=== PATIENT | female | born 1955 | race Caucasian/White ===

== ENCOUNTER 2019-07-22 15:48 | Observation (INO) | payer OTHER, SELFPAY ==
[2019-06-24 14:35] VITALS: BP 142/76; PULSE 77; RESP 18; TEMP 36.8; O2SAT 97; BMI 28.1
--- NOTE | 2019-06-25 13:20 | PC.NURSE ---
OR CONSENT TO BE SIGNED DAY OF SURGERY. PATIENT SMELLED OF ALCOHOL. GOVIND FROM DR CARDOZA'S OFFICE MADE AWARE.
[2019-07-20] VITALS (14 sets, daily range): BP systolic 125–157; BP diastolic 60–95; PULSE 60–84; RESP 10–20; TEMP 36.2–37.2; O2SAT 92–100; BMI 29.5
[2019-07-20] MEDS: LACTATED RINGERS 1,000 ML 30 ML IV CONT ×2 (11:25→16:31)
--- NOTE | 2019-07-20 12:45 | WPDANESEPPF ---
Anes - Initial Pre Proc Eval Procedure: Operation Date: 07/20/19 13:00 Proposed Procedures p Right Patellofemoral Arthroplasty With Polyethylene Liner Exchange - Joel Womack MD s Removal Hardware Right Distal Femoral Plate And Screws - Joel Womack MD Date/Time: 07/20/19 12:45 Surgeon: Joel Womack MD Pre Op Diagnosis: OA Right Knee/ Painful Hardware Patient Data Age: 64 Gender: F Height: 5 ft 7 in Weight: 81.1 kg Last Vital Signs Temp 36.2 C L 07/20/19 11:08 Pulse 60 07/20/19 11:08 Resp 20 07/20/19 11:08 BP 144/72 H 07/20/19 11:08 Pulse Ox 100 07/20/19 11:08 Allergies Allergy/AdvReac Type Severity Reaction Status Date / Time No Known Allergies Allergy Unknown Unverified 07/20/19 11:13 Home Medications Medication Instructions Recorded Confirmed Type atenolol 50 mg PO DAILY 06/24/19 07/20/19 History escitalopram oxalate [Lexapro] 10 mg PO DAILY 06/24/19 07/20/19 History folic acid 1 mg PO DAILY 06/24/19 07/20/19 History gabapentin 900 mg PO TID 06/24/19 07/20/19 History loperamide [Imodium A-D] 2 mg PO Q4H PRN 06/24/19 06/24/19 History methotrexate 20 mg WEEKLY 06/24/19 06/24/19 History prednisolone acetate 1 drp OPHTHALMIC (EYE) Q12H 06/24/19 06/24/19 History turmeric 400 mg PO DAILY 06/24/19 06/24/19 History aspirin 81 mg tablet,delayed 81 mg PO DAILY 07/15/19 07/20/19 History release cholecalciferol (vitamin D3) 50 50 mcg PO DAILY 07/15/19 07/20/19 History mcg (2,000 unit) capsule conjugated estrogens 0.9 mg tablet 0.9 mg PO DAILY 07/15/19 07/20/19 History ferrous sulfate 325 mg (65 mg 325 mg PO DAILY 07/15/19 07/20/19 History iron) tablet lamotrigine 100 mg tablet 100 mg PO DAILY 07/15/19 History thiamine HCl (vitamin B1) 100 mg 100 mg PO DAILY 07/15/19 History tablet Patient hx anesthesia problems: none Family hx anesthesia problems: none PMFSH Past Medical History Medical History Anxiety Depression Fatigue Hypertension IBS (irritable bowel syndrome) Painful orthopaedic hardware Rheumatoid arthritis Surgical History Surgical History History of back surgery (~2008) History of repair of right rotator cuff (~04/01/17) Status post total knee replacement, right (~2012) Family History Family History Mother Hypertension Family history of Parkinson's disease Other Family history of gout Social History Social History Smoking status: Never smoker Smoking end date: 06/23/81 Alcohol intake: never Anes - Eval Final PreProcedure Day of Procedure 07/20/19 12:45 Patient weight: overweight Heart: regular rate and rhythm Lungs: clear to auscultation Airway: Mallampati scale class II Neurological: alert and oriented Last oral intake: >/= 8 hours ASA classification: III Emergent: no Anesthetic plan: proceed Anesthesia type and monitoring: general LMA and standard monitoring Informed Consent: The patient's anesthetic plan and its attendant risks and benefits were discussed with the patient/family/POA. Questions were solicited and answers provided to the satisfaction of the patient/family/POA.
--- NOTE | 2019-07-20 13:09 | WPDHPUPDATE1 ---
History and Physical Update Update Date/Time: 07/20/19 13:09 History and Physical has been reviewed, including an updated exam of the patient. There are NO changes in the patient's condition. Risks, benefits, and alternatives have been discussed and questions answered. Patient agrees to proceed with procedure.
[2019-07-20] MEDS: ceFAZolin 2 GM/D5W 50 ML 2 GM/50 ML BAG IVPB (13:20)
[2019-07-20] MEDS: ceFAZolin SODIUM 1 GM VIAL IV PUSH (15:22)
--- NOTE | 2019-07-20 16:25 | P.OP_ITS ---
Procedure Note - Detailed Date of procedure: 07/21/19 Pre-op diagnosis: OA Right Knee/ Painful Hardware 1. Patellar arthritis, s/p total knee arthroplasty. 2. Retained orthopedic hardware ,s/p Distal femur fracture ORIF. Post-op diagnosis: same Procedure performed: 1. Revision knee arthroplasty with patellar resurfacing and tibia polyethylene exchange. 2. Hardware remove of 8 deep screws. Description of procedure: Patellar resufacing. Poly exchange from 13 mm to 16mm thickness. Several titanium locking screws were cold welded to the plate, and not removable. It was elected to leave the plate in situ. Implants: [employer] size 16mm CS polyethylene insert, 35mm asymmetric all polyethylene patellar component. Anesthesia: GETA and regional (subsartorial nerve block) Surgeon: Joel Womack MD Drains: No Complications: None Findings: OPERATIVE DETAILS: The patient was given a nerve block preoperatively, and then brought to the operating room. A general anesthetic was administered. The leg was prepped and draped in the usual sterile fashion. The limb was elevated and the tourniquet inflated to 300 mmHg. A longitudinal incision was created along the medial border of the patella and patellar tendon, and a minimally invasive optimized mid-vastus approach to the knee was performed. A moderate medial release was taken. The patella was measured. Patellar resection was carried out with the oscillating saw. At this point, attention was turned to the lateral side plate. A stab incision was created at the distal plate. Two of the screws were removed. They were found to be quite tight and cold-welded. The 3rd screw head was stripped in the process of removal. It was felt that it may have been slightly stripped initially. It was required to increase incision to remove further screws. A percutaneous incision was created for the more proximal screws. One of the shaft screws was cold- welded, such that the screwdriver head broke inside the screw head. This point it was determined that the plate was not going to be removable. Further attempts would require cutting the plate with the high-speed bur. Since the plate was only mildly symptomatic it was left in situ at this point. Attention was turned back to the patella. The lug holes were drilled. The knee was copiously irrigated with antibiotic solution. The all polyethylene patella was cemented into position. Patellar tracking was excellent. The real polyethylene liner was placed after trialing. It was elected to go up 1 size from 13 mm to 16 mm. Soft tissue balancing intention needing were excellent. No additional releases were required. The wounds were closed with #1 Vycril suture, #2 Quill suture, 0-Quill suture, and 2-0 Quill suture followed by mina A sterile bulky dressing was applied. Meticulous hemostasis was maintained throughout the procedure. There were no complications. The patient was extubated and brought to the recovery room in stable condition after the application of sterile dressing with Willem bandage.
[2019-07-20] MEDS: HYDROMORPHONE HCL 1 MG/ML INJ 0.5 MG IV PUSH ×2 (17:18→17:38)
[2019-07-20] MEDS: ONDANSETRON INJ 4 MG/2 ML VIAL IV PUSH (17:31)
[2019-07-20] MEDS: KETOROLAC 15 MG/ML VIAL (*BKC) IV PUSH (18:47)
--- NOTE | 2019-07-20 18:47 | ADMGEN ---
This patient, Ariella Mcbride, was admitted to [facility] Surg Room 312-01. Patient/family oriented to hospital policies and general routines including ID bracelet, bed and alarms, visiting hours, pain management, procedures, bathroom and other care routines, personal items, smoking policy, room service/diet, and visiting hours. Valuables list has been completed. Information on how to activate the Rapid Response Team has been discussed. Patient/Family are encouraged to report perceived risks to care and to ask questions if they do not understand what they are told or what they should do.
[2019-07-20] MEDS: SODIUM CHLORIDE 0.9% IV 1,000 ML 125 ML IV CONT (18:48)
--- NOTE | 2019-07-20 19:16 | PC.NURSE ---
This patient, Ariella Mcbride, was admitted to [facility] Surg Room 312-01. Patient/family oriented to hospital policies and general routines including ID bracelet, bed and alarms, visiting hours, pain management, procedures, bathroom and other care routines, personal items, smoking policy, room service/diet, and visiting hours. Valuables list has been completed. Information on how to activate the Rapid Response Team has been discussed. Patient/Family are encouraged to report perceived risks to care and to ask questions if they do not understand what they are told or what they should do.
[2019-07-20] MEDS: GABAPENTIN 300 MG CAPSULE 900 MG PO (19:50)
[2019-07-20] MEDS: DOCUSATE SODIUM 100 MG CAPSULE PO (19:50)
[2019-07-20] MEDS: DIAZEPAM 5 MG TABLET PO (21:56)
[2019-07-21] MEDS: KETOROLAC 15 MG/ML VIAL (*BKC) IV PUSH ×4 (00:03→17:05)
[2019-07-21 02:00] VITALS: BP 113/49; PULSE 75; RESP 16; TEMP 36.2; O2SAT 95
[2019-07-21 06:06] VITALS: BP 148/71; PULSE 70; RESP 20; TEMP 36.6; O2SAT 100
[2019-07-21 06:32] LABS: Basophils Percent Auto 0.2 % (0.2-1.2); Eosinophils Percent Auto 0.1 % (0-4.4); Hematocrit 33.2 % (37.0-47.0); Hemoglobin 10.5 g/dL (12.0-15.0); Immature Granulocyte Absolute 0.06 K/mm3 (0.00-0.031); Immature Granulocyte Percent A 0.4 % (0-0.5); Lymphocytes Absolute Auto 1.35 K/mm3 (0.9-3.2); Lymphocytes Percent Auto 9.8 % (18.3-44.2); Mean Corpuscular HGB Conc 31.6 g/dl (32-36); Mean Corpuscular Hemoglobin 35.2 pg (26-34); Mean Corpuscular Volume 111.4 fl (80-100); Mean Platelet Volume 10.2 fl (7.4-10.4); Monocytes Absolute Auto 1.5 K/mm3 (0.1-0.6); Neutrophils Absolute Auto 10.8 K/mm3 (1.3-6.7); Neutrophils Percent Auto 78.5 % (45.5-73.1); Platelet Count Result 255 k/mm3 (150-375); Red Blood Count 2.98 M/mm3 (4.2-5.4); Red Cell Distribution Width 14.4 % (11.5-14.5); White Blood Count 13.8 K/mm3 (4.5-10.0)
[2019-07-21 06:48] LABS: Blood Urea Nitrogen 14 mg/dL (7-17); Calcium 8.6 mg/dL (8.4-10.2); Carbon Dioxide 25 mmol/L (22-30); Chloride 103 mmol/L (98-107); Estimated CRCL calculation 81 ml/min; Estimated Glomerular Filt Rate > 60; Glucose 115 mg/dL (65-105); Potassium 4.1 mmol/L (3.4-5.0); Sodium 134 mmol/L (137-145)
[2019-07-21] MEDS: ASPIRIN 81 MG ENTERIC TABLET PO (07:27)
[2019-07-21] MEDS: FOLIC ACID 1 MG TABLET PO (07:28)
[2019-07-21] MEDS: GABAPENTIN 300 MG CAPSULE 900 MG PO ×3 (07:28→16:59)
[2019-07-21] MEDS: ESCITALOPRAM OXALATE 10 MG TABLET PO (07:29)
[2019-07-21] MEDS: FERROUS SULFATE 324 MG TABLET PO (07:29)
[2019-07-21 07:30] VITALS: PULSE 70
[2019-07-21] MEDS: CHOLECALCIFEROL 1,000 UNIT TABLET 2000 UNITS PO (07:30)
[2019-07-21] MEDS: atenoloL 50 MG TABLET PO (07:30)
[2019-07-21] MEDS: ESTROGENS, CONJUGATED 0.3 MG TABLET 0.9 MG PO (07:31)
[2019-07-21 08:28] VITALS: BP 97/69; PULSE 76; RESP 16; TEMP 36.7; O2SAT 100
[2019-07-21 12:12] VITALS: BP 137/54; PULSE 70; RESP 16; TEMP 36.9; O2SAT 98
--- NOTE | 2019-07-21 14:09 | P.PNAN_ITS ---
Anes - Prog Note Post-Op Date/Time: 07/21/19 14:09 Cardiovascular status: normal Respiratory status: normal Airway patency: baseline Mental status: baseline Post-Op hydration status: normal Vital Signs: Last Vital Signs Temp 36.9 C 07/21/19 12:12 Pulse 70 07/21/19 12:12 Resp 16 07/21/19 12:12 BP 137/54 L 07/21/19 12:12 Pulse Ox 98 07/21/19 12:12 I/O: Intake & Output 07/20/19 07/21/19 07/21/19 23:59 07:59 15:59 Intake Total 250 1920 240 Output Total 850 Balance 250 1070 240 Laboratory Tests 07/21/19 05:53 07/21/19 05:53 07/21/19 07/21/19 05:53 05:53 WBC 13.8 H RBC 2.98 L Hgb 10.5 L Hct 33.2 L MCV 111.4 H MCH 35.2 H MCHC 31.6 L RDW 14.4 Plt Count 255 MPV 10.2 Immature Gran % (Auto) 0.4 Neut % (Auto) 78.5 H Lymph % (Auto) 9.8 L [place] % (Auto) 11.0 H Eos % (Auto) 0.1 Baso % (Auto) 0.2 Lymph # (Auto) 1.35 [place] # (Auto) 1.5 H Eos # (Auto) 0.0 Baso # (Auto) 0.0 Abs Immat Gran (auto) 0.06 H Absolute Neuts (auto) 10.8 H Absolute Nucleated RBC 0.0 Nucleated RBC % 0.0 Sodium 134 L Potassium 4.1 Chloride 103 Carbon Dioxide 25 BUN 14 Creatinine 0.70 Estim Creat Clear Calc 81 Estimated GFR > 60 Glucose 115 H Calcium 8.6 Post-procedural complaints: none Patient Feedback: Patient satisfied with anesthetic care.
[2019-07-21] MEDS: DOCUSATE SODIUM 100 MG CAPSULE PO (17:03)
--- NOTE | 2019-07-21 17:26 | PM.PNORT ---
Progress Note: A&P Assessment and Plan (1) Status post total knee replacement, right: Onset Date: ~2012 Code(s): Z96.651 - Presence of right artificial knee joint Status: Acute Assessment and Plan: Progressing well. Continue physical therapy. We discussed the procedure and the rationale for leaving the plate. She is pleased with the discussion. We will apply a Mepilex dressings tomorrow prior to discharge. Discharge home tomorrow. Subjective Subjective Date/Time Seen: 07/21/19 17:26 Interval history: Moderate lateral pain. Mobilizing well. Significant stiffness. Some difficulty with deep flexion. Exam Narrative: Exam Narrative: Wound is healing well. No drainage, or hematoma. Anterior tibialis and EHL 5/5. No edema. Calves non tender. Const: Orientation/consciousness: patient oriented x3 Neuro: General: patient oriented x3 Extrem: General: capillary refill normal, no calf tenderness bilaterally and no pedal edema Psych: Affect: normal affect Objective Data Vital Signs Vital Signs: Vital Signs - 24 hr 07/20/19 17:30 07/20/19 17:45 07/20/19 18:00 Temperature Pulse Rate 72 74 74 Respiratory Rate 14 12 16 Blood Pressure 138/67 134/68 132/78 Pulse Oximetry 98 97 97 07/20/19 18:15 07/20/19 18:30 07/20/19 18:45 Temperature Pulse Rate 75 68 76 Respiratory Rate 10 L 18 16 Blood Pressure 134/66 150/77 H 147/69 H Pulse Oximetry 92 98 97 07/20/19 19:20 07/20/19 20:20 07/20/19 22:00 Temperature 37.2 C 36.8 C 36.7 C Pulse Rate 71 73 80 Respiratory Rate 20 20 20 Blood Pressure 157/67 H 133/60 138/69 Pulse Oximetry 97 96 99 07/21/19 02:00 07/21/19 06:06 07/21/19 07:30 Temperature 36.2 C L 36.6 C Pulse Rate 75 70 70 Respiratory Rate 16 20 Blood Pressure 113/49 L 148/71 H Pulse Oximetry 95 100 07/21/19 08:28 07/21/19 12:12 Temperature 36.7 C 36.9 C Pulse Rate 76 70 Respiratory Rate 16 16 Blood Pressure 97/69 L 137/54 L Pulse Oximetry 100 98 Intake/Output Intake/Output: Intake & Output 01/26/20 01/27/20 01/28/20 01/29/20 23:59 23:59 23:59 23:59 Intake Total 400 2500 Output Total 850 Balance 400 1650 Meds/Results Medications: Active Medications Generic Name Dose Route Start Last Admin Trade Name Freq PRN Reason Stop Dose Admin Aspirin 81 mg 07/21/19 09:00 07/21/19 07:27 Aspirin Ec PO 81 mg DAILY CARLOZ Administration Atenolol 50 mg 07/21/19 09:00 07/21/19 07:30 Tenormin PO 50 mg DAILY CARLOZ Administration Diazepam 5 mg 07/20/19 18:19 07/20/19 21:56 Valium Po PO 5 mg Q8H PRN Administration Spasms Diphenhydramine HCl 25 mg 07/20/19 18:19 Benadryl Inj IV PUSH Q6H PRN Itching Docusate Sodium 100 mg 07/20/19 18:19 07/21/19 17:03 Colace Capsule PO 100 mg BID CARLOZ Administration Escitalopram Oxalate 10 mg 07/21/19 09:00 07/21/19 07:29 Lexapro PO 10 mg DAILY CARLOZ Administration Estrogens Conjugated 0.9 mg 07/21/19 09:00 07/21/19 07:31 Premarin PO 0.9 mg DAILY CARLOZ Administration Ferrous Sulfate 324 mg 07/21/19 09:00 07/21/19 07:29 Ferrous Sulfate PO 324 mg DAILY CARLOZ Administration Folic Acid 1 mg 07/21/19 09:00 07/21/19 07:28 Folic Acid PO 1 mg DAILY CARLOZ Administration Gabapentin 900 mg 07/20/19 18:19 07/21/19 16:59 Neurontin PO 900 mg TID CARLOZ Administration Acetaminophen 1,000 mg in 100 mls @ 400 mls/hr 07/20/19 18:19 07/21/19 17:03 Ofirmev 1,000 Mg Ivpb IVPB 07/21/19 18:20 400 mls/hr Q6HR CARLOZ Administration Ketorolac Tromethamine 15 mg 07/20/19 18:19 07/21/19 17:05 Toradol Inj IV PUSH 07/21/19 18:01 15 mg Q6HR CARLOZ Administration Loperamide HCl 2 mg 07/20/19 18:19 Loperamide Hcl PO Q4H PRN Diarrhea Meperidine HCl 100 mg 07/20/19 18:19 Demerol IM Q3H PRN Breakthrough pain rated 7-10 Naloxone HCl 0.1 mg 07/20/19 18:19 Narcan IV PUSH Q2M PRN
[2019-07-21 22:00] VITALS: BP 115/84; PULSE 69; RESP 16; TEMP 36.7; O2SAT 100
--- NOTE | ~2019-07-22 | XR_ITS ---
XR surgery orthopedic 07/20/2019 16:10 Indication: Hardware removal intraoperatively Procedure: 3 fluoroscopic images of the right knee. 18 seconds of fluoroscopy. Comparison: 07/15/2019 Findings: There is a right knee arthroplasty. There is a distal femoral side plate and screws with re moval of multiple screws. The proximal aspect of the sideplate is not visualized. There is a surgical staple line consistent with recent surgery. Impression: 1: Recent interval removal of multiple screws transfixing the distal femoral side plate. Reviewed, dictated and finalized at location A. [employer] Impression: 1: Recent interval removal of multiple screws transfixing the distal femoral si de plate.
[2019-07-22 05:28] VITALS: BP 147/88; PULSE 92; RESP 18; TEMP 36.9; O2SAT 96
--- NOTE | 2019-07-22 08:03 | PCOTNOTE ---
Attempted to see patient this am, however patient declined. Upon entering, pt reported having pain medicine around 6 am and was currently at an 8 on the pain scale. RN notified.
[2019-07-22] MEDS: GABAPENTIN 300 MG CAPSULE 900 MG PO ×3 (08:22→16:40)
[2019-07-22 08:23] VITALS: PULSE 84
[2019-07-22] MEDS: ASPIRIN 81 MG ENTERIC TABLET PO (08:23)
[2019-07-22] MEDS: atenoloL 50 MG TABLET PO (08:23)
[2019-07-22] MEDS: CHOLECALCIFEROL 1,000 UNIT TABLET 2000 UNITS PO (08:24)
[2019-07-22] MEDS: ESTROGENS, CONJUGATED 0.3 MG TABLET 0.9 MG PO (08:24)
[2019-07-22] MEDS: ESCITALOPRAM OXALATE 10 MG TABLET PO (08:24)
[2019-07-22] MEDS: FOLIC ACID 1 MG TABLET PO (08:24)
[2019-07-22] MEDS: FERROUS SULFATE 324 MG TABLET PO (08:24)
[2019-07-22 09:43] VITALS: O2SAT 99
[2019-07-22 14:00] VITALS: BP 104/60; PULSE 69; RESP 18; TEMP 36.9; O2SAT 96
--- NOTE | 2019-07-22 15:42 | PCOTNOTE ---
Pt stated her doctor told her to take the day off today.
[2019-07-22] MEDS: KETOROLAC 15 MG/ML VIAL (*BKC) IV PUSH ×2 (16:40→19:55)
--- NOTE | 2019-07-22 16:59 | PM.PNORT ---
Progress Note: A&P Additional Plan Severe increase in pain today. The nerve block wore off. She was not able to participate in therapy. Improving pain control Demerol and will add Toradol. Possible discharge home tomorrow. Subjective Subjective Date/Time Seen: 07/22/19 16:59 Post Op day: 2 Interval history: Complains of severe pain this morning. Getting that under control with Demerol. Unable to participate in physical therapy. Exam Narrative: Exam Narrative: Wound mild bruising and moderate swelling. No drainage. Thigh soft. Calf soft. Distal neurologic status intact. Objective Data Vital Signs Vital Signs: Vital Signs - 24 hr 07/21/19 22:00 07/22/19 05:28 07/22/19 08:23 Temperature 36.7 C 36.9 C Pulse Rate 69 92 84 Respiratory Rate 16 18 Blood Pressure 115/84 147/88 H Pulse Oximetry 100 96 07/22/19 09:43 Temperature Pulse Rate Respiratory Rate Blood Pressure Pulse Oximetry 99 Intake/Output Intake/Output: Intake & Output 07/19/19 07/20/19 07/21/19 07/22/19 23:59 23:59 23:59 23:59 Intake Total 400 4180 500 Output Total 1650 800 Balance 400 2530 -300 Meds/Results Medications: Active Medications Generic Name Dose Route Start Last Admin Trade Name Freq PRN Reason Stop Dose Admin Aspirin 81 mg 07/21/19 09:00 07/22/19 08:23 Aspirin Ec PO 81 mg DAILY CARLOZ Administration Atenolol 50 mg 07/21/19 09:00 07/22/19 08:23 Tenormin PO 50 mg DAILY CARLOZ Administration Diazepam 5 mg 07/20/19 18:19 07/20/19 21:56 Valium Po PO 5 mg Q8H PRN Administration Spasms Diphenhydramine HCl 25 mg 07/20/19 18:19 Benadryl Inj IV PUSH Q6H PRN Itching Docusate Sodium 100 mg 07/20/19 18:19 07/22/19 16:41 Colace Capsule PO Not Given BID CARLOZ Escitalopram Oxalate 10 mg 07/21/19 09:00 07/22/19 08:24 Lexapro PO 10 mg DAILY CARLOZ Administration Estrogens Conjugated 0.9 mg 07/21/19 09:00 07/22/19 08:24 Premarin PO 0.9 mg DAILY CARLOZ Administration Ferrous Sulfate 324 mg 07/21/19 09:00 07/22/19 08:24 Ferrous Sulfate PO 324 mg DAILY CARLOZ Administration Folic Acid 1 mg 07/21/19 09:00 07/22/19 08:24 Folic Acid PO 1 mg DAILY CARLOZ Administration Gabapentin 900 mg 07/20/19 18:19 07/22/19 16:40 Neurontin PO 900 mg TID [facility] Administration Ketorolac Tromethamine 15 mg 07/22/19 14:00 07/22/19 16:40 Toradol Inj IV PUSH 07/23/19 14:01 15 mg Q6H CARLOZ Administration Loperamide HCl 2 mg 07/20/19 18:19 Loperamide Hcl PO Q4H PRN Diarrhea Meperidine HCl 100 mg 07/20/19 18:19 07/22/19 15:21 Demerol IM 100 mg Q3H PRN Administration Breakthrough pain rated 7-10 Naloxone HCl 0.1 mg 07/20/19 18:19 Narcan IV PUSH Q2M PRN Opiate Reversal Ondansetron HCl 4 mg 07/20/19 18:19 Zofran Inj IV PUSH Q4H PRN Nausea And Vomiting Oxycodone HCl 5 mg 07/20/19 18:19 07/21/19 07:34 Roxicodone Ir Tablet PO 5 mg Q4H PRN Administration Pain Rated 4-6 Oxycodone HCl 10 mg 07/20/19 18:19 07/22/19 12:56 Roxicodone Ir Tablet PO 10 mg Q4H PRN Administration Pain Rated 7-10 Prednisolone Acetate 1 drop 07/20/19 18:00 07/22/19 16:41 Pred Forte EACH EYE 1 drop Q12H [facility] Administration Vitamin D 2,000 unit 07/21/19 09:00 07/22/19 08:24 Vitamin D PO 2,000 unit DAILY [facility] Administration Radiology Results: ITS Impressions Intraoperative X-Ray 07/20/19 16:27 Impression: 1: Recent interval removal of multiple screws transfixing the distal femoral side plate.
[2019-07-22 22:00] VITALS: BP 100/59; PULSE 69; RESP 16; TEMP 36.7; O2SAT 95
[2019-07-23] MEDS: KETOROLAC 15 MG/ML VIAL (*BKC) IV PUSH ×2 (01:54→08:52)
[2019-07-23 06:00] VITALS: BP 100/55; PULSE 75; RESP 16; TEMP 37; O2SAT 97
--- NOTE | 2019-07-23 08:46 | PM.DS ---
DS: Diagnosis Admitting Diagnosis Admitting Diagnosis: Essential (primary) hypertension Discharge Diagnosis (1) Osteoarthritis of patellofemoral joint: Qualifiers: Laterality: right Qualified Code(s): M17.11 - Unilateral primary osteoarthritis, right knee Code(s): M17.10 - Unilateral primary osteoarthritis, unspecified knee Status: Acute (2) Status post total knee replacement, right: Onset Date: Code(s): Z96.651 - Presence of right artificial knee joint Status: Acute DS: Summary Hospital Course Reason for hospitalization: Patella arthroplasty. Hospital Course: Lateral plate and screws left in situ due to cold welding of screws to plate. Tolerated surgery well. Pain on POD 2 controlled with IV medication. Progressed appropriately with therapy. Status at Discharge Functional status at discharge: uses cane/walker Time Spent with Patient Time attestation: Total time spent providing and/or coordinating discharge services: Exam Const: General: no acute distress Resp: Effort & Inspection: normal respiratory effort Skin: Other: Wound healing well. Mepilex dressing intact. No hematoma or drainage. Neuro: Motor exam (neuro): 5/5 motor strength present throughout Sensory Exam: normal sensation Psych: Mental Status: mental status grossly normal Speech and movement: Normal speech and movement present Discharge Plan Discharge Attending physician on discharge: Joel Womack Discharging Clinician: Joel Womack Patient Disposition: Home, Self-Care Activity: may shower Diet: as tolerated Wound Care Instructions: other - see discharge instructions Discharge Instructions: See instruction sheet. Patient Instructions: Pain Management (DC) Follow-up/Referrals: Joel Womack MD [Physician] - Discharge Medications: New oxycodone-acetaminophen 5-325 mg tablet 1 - 2 tablet PO Q4-6H MDD 8 tablets PRN (Reason: pain) Qty: 40 RF: 0 aspirin 81 mg Tablet,Delayed Release (Dr/Ec) 81 mg PO DAILY Qty: 7 RF: 0 Continued Premarin 0.9 mg tablet 0.9 mg PO DAILY RF: 0 ferrous sulfate 325 mg (65 mg iron) tablet 325 mg PO DAILY RF: 0 lamotrigine 100 mg tablet 100 mg PO BID RF: 0 cholecalciferol (vitamin D3) 50 mcg (2,000 unit) capsule 50 mcg PO DAILY RF: 0 thiamine HCl (vitamin B1) 100 mg tablet 100 mg PO DAILY RF: 0 prednisolone acetate 1 % Drops,Suspension 1 drp OPHTHALMIC (EYE) Q12H RF: 0 loperamide [Imodium A-D] 2 mg Tablet 2 mg PO Q4H PRN (Reason: Diarrhea) RF: 0 gabapentin 300 mg Capsule 900 mg PO TID RF: 0 folic acid 1 mg Tablet 1 mg PO DAILY RF: 0 atenolol 50 mg Tablet 50 mg PO DAILY RF: 0 escitalopram oxalate [Lexapro] 10 mg Tablet 10 mg PO DAILY RF: 0 methotrexate 2.5 mg/mL Solution 20 mg WEEKLY RF: 0 turmeric 400 mg Capsule 400 mg PO DAILY RF: 0 Date of admission: 07/22/19 15:48 Admitting Provider: Joel Womack Attending physician on admission: Joel Womack Quality VTE Prophylaxis VTE prophylaxis: mechanical ordered (HAN marie and Justine)
[2019-07-23] MEDS: GABAPENTIN 300 MG CAPSULE 900 MG PO (08:51)
[2019-07-23] MEDS: ESTROGENS, CONJUGATED 0.3 MG TABLET 0.9 MG PO (08:51)
[2019-07-23 08:54] VITALS: PULSE 88
[2019-07-23] MEDS: FERROUS SULFATE 324 MG TABLET PO (08:54)
[2019-07-23] MEDS: CHOLECALCIFEROL 1,000 UNIT TABLET 2000 UNITS PO (08:54)
[2019-07-23] MEDS: ASPIRIN 81 MG ENTERIC TABLET PO (08:54)
[2019-07-23] MEDS: FOLIC ACID 1 MG TABLET PO (08:54)
[2019-07-23] MEDS: atenoloL 50 MG TABLET PO (08:54)
[2019-07-23] MEDS: ESCITALOPRAM OXALATE 10 MG TABLET PO (08:54)
== END 2019-07-23 12:55 | disposition home or self-care (01) ==
LOC: ANHSURGERY 15:48 → ANH3MEDSUR 15:48
PROVIDERS: Admitting Provider Orthopaedic Surgery; Visit Provider Orthopaedic Surgery
PROC: (CPT 27487; principal; 2019-07-20 13:00)
PROC: (CPT 27486; 2019-07-20 13:00)
DX: M17.11 Unilateral primary osteoarthritis, right knee (principal); T84.84XA Pain due to internal orthopedic prosthetic devices, implants and grafts, initial encounter; I10 Essential (primary) hypertension; Z79.82 Long term (current) use of aspirin; Z79.899 Other long term (current) drug therapy
CPT/HCPCS: 27486; 27438; 36415; 76000; 80048; 85025; 97110; 97116; 97161; 97165; 97530; 97535; A9270; C1713; G0378; J0131; J0171; J0690; J1100; J1170; J1885; J2175; J2250; J2270; J2405; J2704; J2795; J3010; J7030; J7120

== ENCOUNTER 2020-12-07 14:16 | Emergency (ER) | payer OTHER, SELFPAY ==
--- NOTE | 2020-12-07 14:18 | ED.ANIMALBIT ---
HPI - Animal Bite General Chief Complaint: Wound/Laceration Stated Complaint: Dog bite Lt leg Time Seen by Provider: 12/07/20 14:19 Source: patient and RN notes reviewed History of Present Illness HPI narrative: Patient is a 65-year-old female who presents the urgent care with complaints of left calf dog bite. Patient states that happened approximately 1 hour prior to arrival and she has not cleaned it out or done anything for her pain. Patient states that the dog is a smaller mixed breed and believes to be up-to-date on the vaccinations. No other acute complaints. No acute distress noted. Patient and spouse aware of the plan of care. Some parts of this dictation were generated by voice recognition software and may contain typographical and/or grammatical inaccuracies. Related Data Home Medications Medication Instructions Recorded Confirmed atenolol 50 mg PO DAILY 06/24/19 12/07/20 folic acid 1 mg PO DAILY 06/24/19 12/07/20 gabapentin 900 mg PO TID 06/24/19 12/07/20 loperamide [Imodium A-D] 2 mg PO Q4H PRN 06/24/19 12/07/20 methotrexate 20 mg WEEKLY 06/24/19 12/07/20 turmeric 400 mg PO DAILY 06/24/19 12/07/20 cholecalciferol (vitamin D3) 50 50 mcg PO DAILY 07/15/19 12/07/20 mcg (2,000 unit) capsule lamotrigine 100 mg tablet 100 mg PO BID 07/15/19 12/07/20 thiamine HCl (vitamin B1) 100 mg 100 mg PO DAILY 07/15/19 12/07/20 tablet escitalopram oxalate 20 mg PO DAILY 12/07/20 12/07/20 sucralfate 1 g PO QID 12/07/20 12/07/20 zolpidem 12.5 mg PO HS 12/07/20 12/07/20 Allergies Allergy/AdvReac Type Severity Reaction Status Date / Time No Known Allergies Allergy Unknown Verified 12/07/20 14:44 Review of Systems Review of Systems: Narrative: CONSTITUTIONAL: Denies fever, chills, or sweats. EYES: Denies visual changes, redness, or discharge. ENT: Denies rhinorrhea, congestion, sore throat, or otalgia. CARDIOVASCULAR: Denies chest pain, palpitations, or edema. RESPIRATORY: Denies cough or dyspnea. GASTROINTESTINAL: Denies abdominal pain, nausea, vomiting, or diarrhea. GENITOURINARY: Denies dysuria or hematuria. SKIN: Reports of a dog bite to the left calf MUSCULOSKELETAL: Denies back pain, joint pain, or myalgia. NEUROLOGIC: Denies headache, numbness, or weakness. All other systems reviewed are negative, except as documented in HPI. [facility] Past Medical History Medical History (Updated 12/07/20 @ 14:48 by JAKUB Boyd) Anxiety Cervical spine degeneration Depression Fatigue Hypertension IBS (irritable bowel syndrome) Painful orthopaedic hardware Rheumatoid arthritis Trochanteric bursitis, left hip Surgical History Surgical History (Updated 07/14/20 @ 08:42 by María Barlow, RT(R)) History of back surgery (~2008) History of repair of right rotator cuff (~04/01/17) Status post total knee replacement, right (~2012) Family History Family History Mother Hypertension Family history of Parkinson's disease Other Family history of gout Social History Social History Smoking status: Former smoker Smoking end date: 06/23/82 Alcohol intake: current Substance use: never Substance use type: does not use Gender identity (if verbalized by the patient): Female Spiritual care concerns: No Comments At the time of my signature, I reviewed and agree with the nursing past medical, surgical, social, and family history. There is no relevant family history pertinent to the patient complaint. Exam Narrative: Exam Narrative: GENERAL: This is a well-nourished, well-developed patient, in no apparent distress. HEAD: normocephalic, atraumatic. EYES: PERRL. Sclera clear/white. Vision is grossly intact. EARS: External ears normal NOSE: External nose normal with no obvious nasal discharge, nares without redness, no rhinorrhea. THROAT: Mucous membranes moist, NECK: Neck supple CARDIOVASC
[2020-12-07 14:26] VITALS: BP 151/88; PULSE 79; RESP 20; TEMP 36.7; O2SAT 100
== END 2020-12-07 14:55 | disposition home or self-care (01) ==
PROVIDERS: Emergency Provider Nurse Practitioner Family
DX: S81.812A Laceration without foreign body, left lower leg, initial encounter (principal); W54.0XXA Bitten by dog, initial encounter; G31.89 Other specified degenerative diseases of nervous system; F32.9 Major depressive disorder, single episode, unspecified; I10 Essential (primary) hypertension; M06.9 Rheumatoid arthritis, unspecified; Z96.651 Presence of right artificial knee joint; Z87.891 Personal history of nicotine dependence
CPT/HCPCS: 99213; G0463

== ENCOUNTER 2021-08-20 10:28 | Emergency (ER) | payer OTHER, SELFPAY ==
--- NOTE | ~2021-08-20 | XR_ITS ---
EXAMINATION: XR chest 2V 08/20/2021 11:24 INDICATION: Cough and wheezing PROCEDURE: 2 view chest COMPARISON: No prior studies for comparison. FINDINGS: There are coarse peripheral interstitial infiltrates of the mid lungs, likely chronic scarr ing/atelectasis. The cardiomediastinal silhouette is within normal limits. There are no pleural effu sions. There is no pneumothorax suspected. IMPRESSION: 1: Coarse interstitial infiltrates of the midlungs, most likely chronic atelectasis/scarring. Recomm end correlation with outside x-rays. Reviewed, dictated and finalized at location A. GER CLIENT SERVICE IMPRESSION: 1: Coarse interstitial infiltrates of the midlungs, most likely chronic atelec tasis/scarring. Recommend correlation with outside x-rays.
--- NOTE | 2021-08-20 10:36 | ED.URI ---
HPI - URI/Sore Throat General Chief Complaint: Upper Respiratory Infection Stated Complaint: Sore Throat Time Seen by Provider: 08/20/21 10:36 Source: patient and RN notes reviewed History of Present Illness HPI Narrative: Patient is 66-year-old female who presents the urgent care with complaints of a sore throat since Friday and intermittent shortness of breath on exertion. Patient also reports of some right ear pain. Denies of any fever, nausea, vomiting, chest pain. Patient denies of any history of lung or heart condition. Patient states that she took a negative Covid test last night. Denies any known fever, chills, nausea or vomiting. No other acute complaints. No acute distress noted. Patient read the plan of care. Some parts of this dictation were generated by voice recognition software and may contain typographical and/or grammatical inaccuracies. Related Data Home Medications Medication Instructions Recorded Confirmed atenolol 25 mg PO DAILY 06/24/19 08/20/21 folic acid 1 mg PO DAILY 06/24/19 08/20/21 gabapentin 900 mg PO TID 06/24/19 08/20/21 loperamide [Imodium A-D] 2 mg PO Q4H PRN 06/24/19 08/20/21 methotrexate 20 mg WEEKLY 06/24/19 08/20/21 cholecalciferol (vitamin D3) 50 50 mcg PO DAILY 07/15/19 08/20/21 mcg (2,000 unit) capsule lamotrigine 100 mg tablet 100 mg PO BID 07/15/19 08/20/21 escitalopram oxalate 20 mg PO DAILY 12/07/20 08/20/21 zolpidem 12.5 mg PO HS 12/07/20 08/20/21 upadacitinib [Rinvoq] 15 mg PO DAILY 08/20/21 08/20/21 Allergies Allergy/AdvReac Type Severity Reaction Status Date / Time No Known Allergies Allergy Unknown Verified 08/20/21 10:52 Review of Systems Review of Systems: CONSTITUTIONAL: Denies fever, chills, or sweats. EYES: Denies visual changes, redness, or discharge. ENT: Reports of right otalgia and sore throat CARDIOVASCULAR: Denies chest pain, palpitations, or edema. RESPIRATORY: Reports of dry cough with intermittent dyspnea GASTROINTESTINAL: Denies abdominal pain, nausea, vomiting, or diarrhea. GENITOURINARY: Denies dysuria or hematuria. SKIN: Denies rash or itching. MUSCULOSKELETAL: Denies back pain, joint pain, or myalgia. NEUROLOGIC: Denies headache, numbness, or weakness. All other systems reviewed are negative, except as documented in HPI. [facility] Past Medical History Medical History (Updated 08/20/21 @ 11:50 by JAKUB Boyd) Anxiety Cervical spine degeneration Depression Fatigue Hypertension IBS (irritable bowel syndrome) Painful orthopaedic hardware Rheumatoid arthritis Trochanteric bursitis, left hip Surgical History Surgical History (Updated 07/14/20 @ 08:42 by María Barlow, RT(R)) History of back surgery (~2008) History of repair of right rotator cuff (~04/01/17) Status post total knee replacement, right (~2012) Family History Family History Mother Hypertension Family history of Parkinson's disease Other Family history of gout Social History Social History Smoking status: Former smoker Smoking end date: 06/23/82 Alcohol intake: current Substance use: never Substance use type: does not use Gender identity (if verbalized by the patient): Female Spiritual care concerns: No Comments At the time of my signature, I reviewed and agree with the nursing past medical, surgical, social, and family history. There is no relevant family history pertinent to the patient complaint. Exam Narrative: GENERAL: This is a well-nourished, well-developed patient, in no apparent distress. HEAD: normocephalic, atraumatic. EYES: PERRL. Sclera clear/white. Vision is grossly intact. EARS: External ears normal, auditory canals clear and without drainage, TMs normal without perforation. Hearing grossly intact. NOSE: External nose normal with no obvious nasal discharge, nares without redness, no rhinorrhea. THROAT: Muco
[2021-08-20 10:38] VITALS: BP 151/88; PULSE 102; RESP 18; TEMP 37.7; O2SAT 98
== END 2021-08-20 11:56 | disposition home or self-care (01) ==
PROVIDERS: Emergency Provider Nurse Practitioner Family
DX: J02.9 Acute pharyngitis, unspecified (principal); R91.8 Other nonspecific abnormal finding of lung field; Z87.891 Personal history of nicotine dependence; I10 Essential (primary) hypertension; M06.9 Rheumatoid arthritis, unspecified; Z96.651 Presence of right artificial knee joint; M50.30 Other cervical disc degeneration, unspecified cervical region; F41.9 Anxiety disorder, unspecified
CPT/HCPCS: 71046; 87081; 87880; 99213; G0463

== ENCOUNTER 2022-11-20 10:55 | Outpatient (CLI) | payer OTHER, SELFPAY ==
--- NOTE | 2022-11-20 11:27 | ECG_ITS ---
Measurements Intervals [place] Rate: 80 P: -17 [place]: 152 QRS: -14 QRSD: 103 T: 24 QT: 363 QTc: 420 Interpretive Statements SINUS RHYTHM DELAYED PRECORDIAL R/S TRANSITION BASELINE ARTIFACT- I, II, AVR, AVF BORDERLINE ECG COMPARED TO ECG 06/24/2019 15:28:11 NO SIGNIFICANT CHANGES Electronically Signed On 11-20-2022 12:13:28 CDT by Randal Ware D.O.
== END 2022-11-20 10:56 | disposition home or self-care (01) ==
PROVIDERS: Visit Provider Orthopaedic Surgery
DX: I10 Essential (primary) hypertension (principal); Z01.818 Encounter for other preprocedural examination; R94.31 Abnormal electrocardiogram [ECG] [EKG]
CPT/HCPCS: 93005

== ENCOUNTER 2022-11-22 02:48 | Day surgery (SDC) | payer OTHER, SELFPAY ==
[2022-11-20 10:40] VITALS: BMI 27.9
--- NOTE | 2022-11-20 11:20 | PC.NURSE ---
Report to the Outpatient Waiting Room, entrance under the green pavilion located off [facility], at time 10:30 on date 11/22/22. Planned Procedure Time: 12:30. Time changes happen often and if your time is changed the preop area will call you the afternoon before. - You and your visitor will be asked to self-screen and do not enter if you have any COVID symptoms. - A mask is optional within the hospital at this time. Patients may have clear liquids (water, carbonated beverages, clear teas, apple juice) until 3 hours prior to surgery (9:30) with a maximum of 20 ounces. - No food from midnight until time of surgery Take the following medications with a SIP of water the morning of surgery: INHALER IF NEEDED, ATENOLOL, DOXYCYCLINE, GABAPENTIN, PAIN PILL IF NEEDED DO NOT STOP ANY OF YOUR OTHER PRESCRIPTION MEDICATIONS PRIOR TO SURGERY EXCEPT THE FOLLOWING Medications to discontinue per physician: VITAMINS/SUPPLEMENTS Date to take last dose: NO MORE UNTIL AFTER SURGERY Please no make-up, nail australian, hairspray, perfume, deodorant, or body powder the day of surgery. No jewelry (including any body piercings) or valuables the day of surgery, leave them at home. Please take a shower or bath the night before, or the morning of, surgery with an antibacterial soap. Wear comfortable, loose fitting clothing. - Jewelry must be removed prior to entering the operating room. Rings and piercings that are not removed may be cut off. - The hospital will not accept responsibility for valuables. - Please leave all valuables, including medications, at home the day of surgery. If you are going home after surgery, a licensed residential recycle driver must drive you home. - NO public transportation without another adult if you receive anesthesia. - We recommend that an adult stay with you for 24 hours following discharge. - We also recommend that you do not drive, make important decision, drink alcoholic beverages, or take any drugs that were not prescribed by your health care provider for at least 24 hours after your discharge time. Follow any additional instructions given to you from your surgeon. If you or anyone in your household have experienced Covid symptoms in the past week, please notify your surgeon or the nurse liaison at the phone number below for possible testing. Telephone instructions given to PT - TERI ELIAS and asked if any additional questions and then verbalized understanding. Patient advised to call surgeon office or pre surgery nurse liaison [phone] if any additional questions.
[2022-11-22] VITALS (10 sets, daily range): BP systolic 119–160; BP diastolic 55–83; PULSE 68–82; RESP 12–20; TEMP 36.5–36.7; O2SAT 91–100
--- NOTE | ~2022-11-22 | XR_ITS ---
EXAMINATION: XR surgery orthopedic DATE: 11/22/2022 14:45 INDICATION: ORIF left humeral fracture TECHNIQUE: 11 fluoroscopic images of the left shoulder were obtained during procedure performed by Dr Ken Womack. Radiologist was not present for the imaging or procedure. The amount of fluoroscopy michela e used during this procedure was 1.9 minutes. COMPARISON: Left shoulder radiographs dated 11/20/2022 FINDINGS: Initial image redemonstrates significant lateral angulation of a comminuted metaphyseal fracture of t he proximal left humerus. Subsequent images demonstrate open reduction and subsequent internal fixati on of the fracture with an antegrade intramedullary elisabeth and 4 interlocking screws. Alignment post fix ation appears near-anatomic. No other fractures identified. IMPRESSION: 1. Near-anatomic alignment post open reduction internal fixation of a comminuted fractures of the pro ximal left humeral metaphysis. Reviewed, dictated and finalized at location A. IMPRESSION: 1. Near-anatomic alignment post open reduction internal fixation of a comminute d fractures of the proximal left humeral metaphysis.
[2022-11-22] MEDS: ACETAMINOPHEN 500 MG TABLET 1000 MG PO (11:25)
[2022-11-22] MEDS: LACTATED RINGERS 1,000 ML 30 ML IV CONT ×2 (11:30→14:52)
[2022-11-22] MEDS: KETOROLAC 15 MG/ML VIAL (*BKC) IV PUSH (11:35)
--- NOTE | 2022-11-22 11:35 | WPDANESEPPF ---
Anes - Initial Pre Proc Eval Procedure: Operation Date: 11/22/22 12:30 Proposed Procedures p Open Reduction Internal Fixation Left Proximal Humerus Fracture - Joel Womack MD Date/Time: 11/22/22 11:35 Surgeon: Joel Womack MD Pre Op Diagnosis: left proximal humerus fx Patient Data Age: 67 Gender: F Height: 1.68 m Weight: 78.5 kg Allergies Allergy/AdvReac Type Severity Reaction Status Date / Time No Known Allergies Allergy Unknown Verified 11/22/22 11:20 Home Medications Medication Instructions Recorded Confirmed Type atenolol 50 mg tablet 25 mg PO DAILY 06/24/19 11/22/22 History folic acid 1 mg tablet 1 mg PO DAILY 06/24/19 11/22/22 History gabapentin 300 mg capsule 900 mg PO TID 06/24/19 11/22/22 History loperamide 2 mg tablet (Imodium 2 mg PO Q4H PRN Diarrhea 06/24/19 11/20/22 History A-D) methotrexate 2.5 mg/mL oral 20 mg WEEKLY RA 06/24/19 11/22/22 History solution cholecalciferol (vitamin D3) 50 50 mcg PO DAILY 07/15/19 11/22/22 History mcg (2,000 unit) capsule lamotrigine 100 mg tablet 100 mg PO BID 07/15/19 11/22/22 History zolpidem 12.5 mg tablet,extended 12.5 mg PO HS 12/07/20 11/22/22 History release,multiphase albuterol sulfate 90 mcg/actuation 2 puff inhalation QID PRN 08/20/21 11/20/22 Rx aerosol inhaler shortness of breath or wheezing #8 grams doxycycline monohydrate 100 mg 100 mg PO BID #20 caps 08/20/21 11/22/22 Rx capsule oxycodone-acetaminophen 5 mg-325 1 - 2 tablet PO Q4-6H PRN pain #30 11/20/22 11/20/22 Rx mg tablet (Percocet) tabs trazodone 50 mg tablet 50 mg PO HS 11/22/22 11/22/22 History Patient hx anesthesia problems: none Family hx anesthesia problems: none Results Review: All pre-operative results and documents have been reviewed as part of the pre-operative evaluation. [facility] Past Medical History Medical History Anxiety Cervical spine degeneration Depression Fatigue Fracture of proximal end of left humerus (~10/25/22) Hypertension IBS (irritable bowel syndrome) Painful orthopaedic hardware Rheumatoid arthritis Trochanteric bursitis, left hip Surgical History Surgical History History of back surgery (~2008) History of repair of right rotator cuff (~04/01/17) Status post total knee replacement, right (~2012) Family History Family History Mother Hypertension Family history of Parkinson's disease Other Family history of gout Social History Social History Smoking packs per day: 1 Smoking cigarettes per day: 20.0 Years smoked: 10 Smoking pack-years: 10.00 Smoking status: Former smoker Tobacco type: cigarettes Smoking end date: 06/23/82 Alcohol intake: never Substance use: never Substance use type: does not use Lack of Transportation: No Lack of Food: Never True Current Housing: I Have Housing Concerned About Future Housing: No Difficulty Paying Gas/Electric Bills: No Difficulty Paying for Meds: No Currently Unemployed: No Education: Bachelor's Degree Difficulty w/ Childcare or Family Care: No Living arrangements: with family Gender identity (if verbalized by the patient): Female Spiritual care concerns: No Anes - Eval Final PreProcedure Day of Procedure 11/22/22 11:35 Patient weight: overweight Heart: regular rate and rhythm Lungs: clear to auscultation Airway: Mallampati scale class II Neurological: alert and oriented Last oral intake: >/= 8 hours ASA classification: III Emergent: no Anesthetic plan: proceed Anesthesia type and monitoring: general ETT and standard monitoring Results Review: All pre-operative results and documents have been reviewed as part of the pre-operative evaluation. Informed Consent: The patient's anes
--- NOTE | 2022-11-22 12:10 | WPDHPUPDATE1 ---
History and Physical Update Update Date/Time: 11/22/22 12:10 History and Physical has been reviewed, including an updated exam of the patient. There are NO changes in the patient's condition. Risks, benefits, and alternatives have been discussed and questions answered. Patient agrees to proceed with procedure.
[2022-11-22] MEDS: ceFAZolin 2 GM/D5W 50 ML 2 GM/50 ML BAG IVPB (12:42)
[2022-11-22] MEDS: BUPIVACAINE/EPINEPHRINE 0.5% 50 ML VIAL 20 ML INFILTRATE (13:35)
--- NOTE | 2022-11-22 14:42 | W.PM.PROC2 ---
Procedure Note - Detailed Date of Procedure 11/22/22 Pre-op Diagnosis left proximal humerus fx Post-op Diagnosis Other (1. Left proximal humerus fx 2. Chronic massive rotator cuff tear.) Procedure Performed ORIF left proximal humerus displaced surgical neck fracture. Surgeon Joel oWmack MD Anesthesia General Indications Displaced left proximal humerus surgical neck fracture with progressive displacement upon serial radiographs. Findings Significant osteoporosis. Massive rotator cuff tear. Description of Procedure Preoperative antibiotics were given. A general anesthetic was administered. The shoulder was prepped and draped in usual sterile fashion in the slight beach chair position. The articulating arm fernandez was used. Oblique incision across the anterolateral acromion was created. The upper 5 cm of the deltoid was split between the anterior and middle raphe. Dissection was carried down to the humeral head. There was no rotator cuff tissue on the super and infraspinatus. Some teres minor and subscapularis remain. Biceps was chronically ruptured. Fracture was partially healed. It required introduction of a Hohmann into the fracture site and gentle [place] of the fracture into a near anatomic position. Biplanar fluoroscopy was used throughout the procedure to confirm anatomic reduction and appropriate placement of implants. The starting point was carefully identified on the humeral head. Guidewire was placed followed by proximal reaming. Exchange guidewire was applied and the nail was carefully manipulated across the fracture site. This provided and anatomic reduction with the assistance of the nail. Three proximal locking screws were placed through the proximal incision. One distal static locking screw was placed through the guide sleeve which was carefully placed percutaneously through the skin. Careful assessment of the screw lengths was performed to confirm that no screws were protruding. Two of the screws were shortened by 5 mm for additional safety. The locking end cap was placed. The wound was irrigated and the deltoid split was closed with interrupted 1. Vicryl suture. The subcutaneous tissues were closed with 3-0 Monocryl suture followed by running 4-0 Monocryl suture and Steri-Strips. Sterile Mepilex dressing was applied. The patient was placed in a sling, extubated, and brought to the recovery room in stable condition. There were no complications. Implants Dubizzle 8 x 150 mm proximal humeral nail. End cap placed. Proximal locking screws 5 x 50 mm, 5 x 45 mm, and 5 x 42.5 mm. Distal locking screw 4 x 28 mm. Estimated Blood Loss 50 Drains No Pathology None sent Complications No immediate complications Condition Stable Disposition PACU [facility] Billing Surgery - Charge Forward: Surgery Billing
[2022-11-22] MEDS: fentaNYL CITRATE INJ (*CRX) 100 MCG/2 ML VIAL 25 MCG IV PUSH ×5 (15:08→15:42)
[2022-11-22] MEDS: HYDROmorphone HCL INJ (*CRX) 1 MG/ML SYR 0.5 MG IV PUSH ×4 (15:24→15:39)
[2022-11-22] MEDS: oxyCODONE HCL (*CRX) 5 MG TAB IR PO (16:30)
== END 2022-11-22 17:31 | disposition home or self-care (01) ==
PROVIDERS: Visit Provider Orthopaedic Surgery
PROC: (CPT 23615; principal; 2022-11-22 12:30)
DX: S42.212A Unspecified displaced fracture of surgical neck of left humerus, initial encounter for closed fracture (principal); M75.102 Unspecified rotator cuff tear or rupture of left shoulder, not specified as traumatic; M75.82 Other shoulder lesions, left shoulder; W19.XXXA Unspecified fall, initial encounter; M81.0 Age-related osteoporosis without current pathological fracture; I10 Essential (primary) hypertension; M06.9 Rheumatoid arthritis, unspecified; F41.9 Anxiety disorder, unspecified; F32.A Depression, unspecified; Z79.51 Long term (current) use of inhaled steroids; Z79.631 Long term (current) use of antimetabolite agent; Z87.891 Personal history of nicotine dependence
CPT/HCPCS: 23615; 93005; 99199; A4565; A9270; C1713; C1769; J0330; J0690; J1170; J1885; J2250; J2370; J2405; J2704; J2710; J3010; J7120

== ENCOUNTER 2023-05-26 11:48 | Outpatient (CLI) | payer OTHER, SELFPAY ==
[2023-05-26 12:58] LABS: Basophils Absolute Auto 0.1 K/mm3 (0.0-0.1); Basophils Percent Auto 0.6 % (0.2-1.2); Eosinophils Absolute Auto 0.1 K/mm3 (0-0.3); Eosinophils Percent Auto 1.3 % (0-4.4); Hemoglobin 12.9 g/dL (12.0-15.0); Immature Granulocyte Absolute 0.03 K/mm3 (0.00-0.031); Immature Granulocyte Percent A 0.4 % (0-0.5); Lymphocytes Percent Auto 22.9 % (18.3-44.2); Mean Corpuscular HGB Conc 32.3 g/dl (32-36); Mean Corpuscular Hemoglobin 35.5 pg (26-34); Mean Corpuscular Volume 110.2 fl (80-100); Mean Platelet Volume 9.5 fl (7.4-10.4); Monocytes Percent Auto 11.6 % (2.6-8.5); Neutrophils Absolute Auto 5.3 K/mm3 (1.3-6.7); Neutrophils Percent Auto 63.2 % (45.5-73.1); Platelet Count Result 270 k/mm3 (150-375); Red Blood Count 3.63 M/mm3 (4.2-5.4); Red Cell Distribution Width 13.9 % (11.5-14.5); White Blood Count 8.3 K/mm3 (4.5-10.0)
== END 2023-05-26 11:49 | disposition home or self-care (01) ==
LOC: ANHSURGERY 11:55
PROVIDERS: Visit Provider Orthopaedic Surgery
DX: M12.812 Other specific arthropathies, not elsewhere classified, left shoulder (principal); Z01.818 Encounter for other preprocedural examination
CPT/HCPCS: 36415; 85025; 87081

== ENCOUNTER 2023-09-17 10:27 | Outpatient (CLI) | payer OTHER, SELFPAY ==
[2023-09-17 11:02] LABS: Basophils Percent Auto 0.8 % (0.2-1.2); Eosinophils Absolute Auto 0.1 K/mm3 (0-0.3); Eosinophils Percent Auto 2.8 % (0-4.4); Hematocrit 40.4 % (37.0-47.0); Hemoglobin 13.2 g/dL (12.0-15.0); Immature Granulocyte Absolute 0.01 K/mm3 (0.00-0.031); Immature Granulocyte Percent A 0.2 % (0-0.5); Lymphocytes Absolute Auto 2.01 K/mm3 (0.9-3.2); Lymphocytes Percent Auto 40.2 % (18.3-44.2); Mean Corpuscular HGB Conc 32.7 g/dl (32-36); Mean Corpuscular Volume 113.2 fl (80-100); Mean Platelet Volume 9.2 fl (7.4-10.4); Monocytes Absolute Auto 0.2 K/mm3 (0.1-0.6); Monocytes Percent Auto 4.4 % (2.6-8.5); Neutrophils Absolute Auto 2.6 K/mm3 (1.3-6.7); Neutrophils Percent Auto 51.6 % (45.5-73.1); Platelet Count Result 335 k/mm3 (150-375); Red Blood Count 3.57 M/mm3 (4.2-5.4)
[2023-09-17 12:12] LABS: MRSA (PCR) NOT DETECTED (NOT DETECTE)
[2023-09-17 13:38] LABS: Anisocytosis 1+; Macrocytosis 1+ (NORMAL); Platelet Estimate Adequate (Adequate); Schistocytes None Seen
== END 2023-09-17 10:28 | disposition home or self-care (01) ==
LOC: ANHSURGERY 10:30
PROVIDERS: Visit Provider Orthopaedic Surgery
DX: M12.812 Other specific arthropathies, not elsewhere classified, left shoulder (principal); Z01.818 Encounter for other preprocedural examination
CPT/HCPCS: 36415; 85025; 86850; 86900; 86901; 87641

== ENCOUNTER 2023-09-25 01:06 | Day surgery (SDC) | payer OTHER, SELFPAY ==
--- NOTE | 2023-05-26 11:41 | PC.NURSE ---
PRE-OP INSTRUCTIONS, PLEASE READ CAREFULLY Report to the Outpatient Waiting Room, entrance under the green pavilion located off [facility], at time _0600_ on date _06/12/23_. Planned Procedure Time: _0730_. PACK A SMALL OVERNIGHT BAG AND LEAVE IN THE CAR Time changes happen often and if your time is changed the preop area will call you the afternoon before. - You and your visitor will be asked to self-screen and do not enter if you have any COVID symptoms. - A mask is optional within the hospital at this time. -VISITING HOURS 8AM-8PM Patients may have clear liquids (water, carbonated beverages, clear teas, apple juice) until 3 hours prior to surgery (0430 AM) with a maximum of 20 ounces. - No food from midnight until time of surgery Take the following medications with a SIP of water the morning of surgery: _ATENOLOL, ARNUITY INHALER, DOXYCYCLINE, DULOXETINE, GABAPENTIN, & ALBUTEROL INHALER, TYLENOL IF NEEDED_ DO NOT STOP ANY OF YOUR OTHER PRESCRIPTION MEDICATIONS PRIOR TO SURGERY ?EXCEPT THE FOLLOWING Medications to discontinue - _METHOTREXATE, SULFASALAZINE PER DR. CARDOZA'S INSTRUCTIONS, Date to take last dose CALL OFFICE FOR INSTRUCTIONS_ Medications to discontinue per ANESTHESIA - _VITAMINS/SUPPLEMENTS 3 DAYS PRIOR TO SURGERY, Date to take last dose 06/08/23_ Please no make-up, nail uzbek, hairspray, perfume, deodorant, or body powder the day of surgery. No jewelry (including any body piercings) or valuables the day of surgery, leave them at home. Please take a shower or bath the night before, or the morning of, surgery with an antibacterial soap. Wear comfortable, loose fitting clothing. - Jewelry must be removed prior to entering the operating room. Rings and piercings that are not removed may be cut off. - The hospital will not accept responsibility for valuables. - Please leave all valuables, including medications, at home the day of surgery. If you are going home after surgery, a licensed xm1 tank driver must drive you home. - NO public transportation without another adult if you receive anesthesia. - We recommend that an adult stay with you for 24 hours following discharge. - We also recommend that you do not drive, make important decision, drink alcoholic beverages, or take any drugs that were not prescribed by your health care provider for at least 24 hours after your discharge time. Follow any additional instructions given to you from your surgeon. If you or anyone in your household have experienced Covid symptoms in the past week, please notify your surgeon or the nurse liaison at the phone number below for possible testing. Instructions given to _PATIENT & SPOUSE_and asked if any additional questions and then verbalized understanding. Patient advised to call surgeon office or pre surgery nurse liaison [phone] if any additional questions.
[2023-05-26 12:26] VITALS: BP 140/78; PULSE 76; RESP 18; TEMP 37.1; O2SAT 100; BMI 26.9
--- NOTE | 2023-06-11 11:01 | WPDANESEPPF ---
Anes - Initial Pre Proc Eval Procedure: Operation Date: 06/12/23 07:30 Proposed Procedures p Left Reverse Total Shoulder Arthroplasty with Hardware Removal - Joel Womack MD Date/Time: 06/11/23 11:01 Surgeon: Joel Womack MD Pre Op Diagnosis: Left shoulder rotator cuff arthropathy Patient Data Age: 68 Gender: F Height: 1.68 m Weight: 75.8 kg Last Vital Signs Temp 37.1 C 05/26/23 12:26 Pulse 76 05/26/23 12:26 Resp 18 05/26/23 12:26 BP 140/78 05/26/23 12:26 Pulse Ox 100 05/26/23 12:26 O2 Del Method Room Air 05/26/23 12:26 Allergies Allergy/AdvReac Type Severity Reaction Status Date / Time No Known Allergies Allergy Unknown Verified 05/26/23 12:06 Home Medications Medication Instructions Recorded Confirmed Type atenolol 50 mg tablet 25 mg PO DAILY 06/24/19 05/26/23 History folic acid 1 mg tablet 1 mg PO DAILY 06/24/19 05/26/23 History gabapentin 300 mg capsule 900 mg PO TID 06/24/19 05/26/23 History loperamide 2 mg tablet (Imodium 2 mg PO Q4H PRN Diarrhea 06/24/19 05/26/23 History A-D) methotrexate 2.5 mg/mL oral 20 mg WEEKLY RA 06/24/19 05/26/23 History solution zolpidem 12.5 mg tablet,extended 12.5 mg PO HS 12/07/20 05/26/23 History release,multiphase albuterol sulfate 90 mcg/actuation 2 puff inhalation QID PRN 08/20/21 05/26/23 Rx aerosol inhaler shortness of breath or wheezing #8 grams doxycycline monohydrate 100 mg 100 mg PO BID #20 caps 08/20/21 05/26/23 Rx capsule trazodone 50 mg tablet 50 mg PO HS 11/22/22 05/26/23 History acetaminophen 500 mg tablet 1,000 mg PO Q6H PRN Pain 05/26/23 05/26/23 History alendronate 70 mg tablet 70 mg PO WEEKLY 05/26/23 05/26/23 History cetirizine 10 mg capsule (All Day 10 mg PO DAILY PRN Congestion 05/26/23 05/26/23 History Allergy (cetirizine)) dicyclomine 20 mg tablet 20 mg PO BID PRN Stomach Upset 05/26/23 05/26/23 History duloxetine 60 mg capsule,delayed 60 mg PO DAILY 05/26/23 05/26/23 History release fluticasone furoate 100 1 inh inhalation DAILY 05/26/23 05/26/23 History mcg/actuation blister powder for inhalation (Arnuity Ellipta) hydroxychloroquine 200 mg tablet 200 mg PO BID 05/26/23 05/26/23 History lyyvbn-yrbmfxwv-ntzdyeo 1 cap PO TID 05/26/23 05/26/23 History 36,000-114,000-180,000 unit capsule,delay rel (Creon) lisinopril 5 mg tablet 5 mg PO DAILY 05/26/23 05/26/23 History potassium chloride 10 mEq 10 meq PO DAILY 05/26/23 05/26/23 History tablet,extended release (Klor-Con) sulfasalazine 500 mg 0.5 g PO DAILY 05/26/23 05/26/23 History tablet,delayed release Results Review: All pre-operative results and documents have been reviewed as part of the pre-operative evaluation. [facility] Past Medical History Medical History (Updated 06/11/23 @ 12:59 by Trevor Canales DO) Anxiety Asthma Cervical spine degeneration Depression Fatigue Fracture of proximal end of left humerus (~10/25/22) Hypertension IBS (irritable bowel syndrome) Neuropathy Painful orthopaedic hardware Rheumatoid arthritis Trochanteric bursitis, left hip Surgical History Surgical History (Updated 06/11/23 @ 12:59 by Trevor Canales DO) History of back surgery (~2008) History of open reduction and internal fixation (ORIF) procedure (~11/22/22) Left Proximal Humerus Fx History of repair of right rotator cuff (~04/01/17) Hx of fusion of cervical spine Status post total knee replacement, right (~2012) Family History Family History Mother Hypertension Family history of Parkinson's disease Other Family history of gout Social History Social History Smoking packs per day: 1 Smoking cigarettes per day: 20.0 Years smoked: 10 Smoking pack-years: 10.00 Smoking status: Former smoker Tobacco type: cigarettes Second hand tobacco smoke exposure: No Smoking end d
--- NOTE | 2023-09-12 10:54 | PC.NURSE ---
PRE-OP INSTRUCTIONS, PLEASE READ CAREFULLY Report to the Outpatient Waiting Room, entrance under the green pavilion located off [facility], at time _0600_ on date _09/25/23_. Planned Procedure Time: _0730_. PACK A SMALL OVERNIGHT BAG AND LEAVE IT IN THE CAR Time changes happen often and if your time is changed the preop area will call you the afternoon before. - You and your visitor will be asked to self-screen and do not enter if you have any COVID symptoms. - A mask is optional within the hospital at this time. Patients may have clear liquids (water, carbonated beverages, clear teas, apple juice) until 3 hours prior to surgery (0430 AM) with a maximum of 20 ounces. - No food from midnight until time of surgery Take the following medications with a SIP of water the morning of surgery: _ATENOLOL, ARNUITY INHALER, DOXYCYCLINE, DULOXETINE, GABAPENTIN, & ALBUTEROL INHALER, TYLENOL IF NEEDED_ DO NOT STOP ANY OF YOUR OTHER PRESCRIPTION MEDICATIONS PRIOR TO SURGERY ?EXCEPT THE FOLLOWING Medications to discontinue - _METHOTREXATE, SULFASALAZINE PER DR. CARDOZA'S INSTRUCTIONS - CALL OFFICE FOR INSTRUCTIONS_ Medications to discontinue per ANESTHESIA -_VITAMINS/SUPPLEMENTS 3 DAYS PRIOR TO SURGERY, Date to take last dose 09/21/23_ Please no make-up, nail latvian, hairspray, perfume, deodorant, or body powder the day of surgery. No jewelry (including any body piercings) or valuables the day of surgery, leave them at home. Please take a shower or bath the night before, or the morning of, surgery with an antibacterial soap. Wear comfortable, loose fitting clothing. - Jewelry must be removed prior to entering the operating room. Rings and piercings that are not removed may be cut off. - The hospital will not accept responsibility for valuables. - Please leave all valuables, including medications, at home the day of surgery. If you are going home after surgery, a licensed set key driver must drive you home. - NO public transportation without another adult if you receive anesthesia. - We recommend that an adult stay with you for 24 hours following discharge. - We also recommend that you do not drive, make important decision, drink alcoholic beverages, or take any drugs that were not prescribed by your health care provider for at least 24 hours after your discharge time. Follow any additional instructions given to you from your surgeon. If you or anyone in your household have experienced Covid symptoms in the past week, please notify your surgeon or the nurse liaison at the phone number below for possible testing. Telephone instructions given to _PATIENT_and asked if any additional questions and then verbalized understanding. Patient advised to call surgeon office or pre surgery nurse liaison [phone] if any additional questions.
--- NOTE | 2023-09-12 11:00 | PC.NURSE ---
PRE-OP INSTRUCTIONS, PLEASE READ CAREFULLY Report to the Outpatient Waiting Room, entrance under the green pavilion located off [facility], at time _0600_ on date _09/25/23_. Planned Procedure Time: _0730_. PACK A SMALL OVERNIGHT BAG AND LEAVE IN THE CAR Time changes happen often and if your time is changed the preop area will call you the afternoon before. - You and your visitor will be asked to self-screen and do not enter if you have any COVID symptoms. - A mask is optional within the hospital at this time. -VISITING HOURS 8AM-8PM Patients may have clear liquids (water, carbonated beverages, clear teas, apple juice) until 3 hours prior to surgery (0430 AM) with a maximum of 20 ounces. - No food from midnight until time of surgery Take the following medications with a SIP of water the morning of surgery: _ATENOLOL, ARNUITY INHALER, DOXYCYCLINE, DULOXETINE, GABAPENTIN, & ALBUTEROL INHALER IF NEEDED_ DO NOT STOP ANY OF YOUR OTHER PRESCRIPTION MEDICATIONS PRIOR TO SURGERY ?EXCEPT THE FOLLOWING Medications to discontinue -_METHOTREXATE, SULFASALAZINE PER DR. CARDOZA - CALL OFFICE FOR INSTRUCTIONS_ Medications to discontinue per ANESTHESIA -_VITAMINS & SUPPLEMENTS 3 DAYS PRIOR TO SURGERY, Date to take last dose 09/21/23_ Please no make-up, nail kinyarwanda, hairspray, perfume, deodorant, or body powder the day of surgery. No jewelry (including any body piercings) or valuables the day of surgery, leave them at home. Please take a shower or bath the night before, or the morning of, surgery with an antibacterial soap. Wear comfortable, loose fitting clothing. - Jewelry must be removed prior to entering the operating room. Rings and piercings that are not removed may be cut off. - The hospital will not accept responsibility for valuables. - Please leave all valuables, including medications, at home the day of surgery. If you are going home after surgery, a licensed medical delivery driver must drive you home. - NO public transportation without another adult if you receive anesthesia. - We recommend that an adult stay with you for 24 hours following discharge. - We also recommend that you do not drive, make important decision, drink alcoholic beverages, or take any drugs that were not prescribed by your health care provider for at least 24 hours after your discharge time. Follow any additional instructions given to you from your surgeon. If you or anyone in your household have experienced Covid symptoms in the past week, please notify your surgeon or the nurse liaison at the phone number below for possible testing. Telephone instructions given to _PATIENT_and asked if any additional questions and then verbalized understanding. Patient advised to call surgeon office or pre surgery nurse liaison [phone] if any additional questions.
[2023-09-12 11:08] VITALS: BMI 27.5
--- NOTE | 2023-09-24 10:19 | WPDANESEPPF ---
Anes - Initial Pre Proc Eval Procedure: Operation Date: 09/25/23 07:30 Proposed Procedures p Left Reverse Total Shoulder Arthroplasty with Hardware Removal - Jeol Womack MD Date/Time: 09/24/23 10:19 Surgeon: Joel Womack MD Pre Op Diagnosis: Left shoulder rotator cuff arthropathy Patient Data Age: 68 Gender: F Height: 1.68 m Weight: 77.27 kg Last Vital Signs Temp 37.1 C 05/26/23 12:26 Pulse 76 05/26/23 12:26 Resp 18 05/26/23 12:26 BP 140/78 05/26/23 12:26 Pulse Ox 100 05/26/23 12:26 O2 Del Method Room Air 05/26/23 12:26 Allergies Allergy/AdvReac Type Severity Reaction Status Date / Time No Known Allergies Allergy Unknown Verified 09/17/23 09:46 Home Medications Medication Instructions Recorded Confirmed Type atenolol 50 mg tablet 25 mg PO DAILY 06/24/19 09/25/23 History folic acid 1 mg tablet 1 mg PO DAILY 06/24/19 09/25/23 History gabapentin 300 mg capsule 900 mg PO TID 06/24/19 09/25/23 History loperamide 2 mg tablet (Imodium 2 mg PO Q4H PRN Diarrhea 06/24/19 09/25/23 History A-D) methotrexate 2.5 mg/mL oral 20 mg WEEKLY RA 06/24/19 09/25/23 History solution zolpidem 12.5 mg tablet,extended 12.5 mg PO HS 12/07/20 09/25/23 History release,multiphase albuterol sulfate 90 mcg/actuation 2 puff inhalation QID PRN 08/20/21 09/25/23 Rx aerosol inhaler shortness of breath or wheezing #8 grams doxycycline monohydrate 100 mg 100 mg PO BID #20 caps 08/20/21 09/25/23 Rx capsule trazodone 50 mg tablet 50 mg PO HS 11/22/22 09/25/23 History acetaminophen 500 mg tablet 1,000 mg PO Q6H PRN Pain 05/26/23 09/25/23 History alendronate 70 mg tablet 70 mg PO WEEKLY 05/26/23 09/25/23 History cetirizine 10 mg capsule (All Day 10 mg PO DAILY PRN Congestion 05/26/23 09/25/23 History Allergy (cetirizine)) dicyclomine 20 mg tablet 20 mg PO BID PRN Stomach Upset 05/26/23 09/25/23 History duloxetine 60 mg capsule,delayed 60 mg PO DAILY 05/26/23 09/25/23 History release fluticasone furoate 100 1 inh inhalation DAILY 05/26/23 09/25/23 History mcg/actuation blister powder for inhalation (Arnuity Ellipta) hydroxychloroquine 200 mg tablet 200 mg PO BID 05/26/23 09/25/23 History dmsecn-btymofrc-yeeckuo 1 cap PO TID 05/26/23 09/25/23 History 36,000-114,000-180,000 unit capsule,delay rel (Creon) lisinopril 5 mg tablet 5 mg PO DAILY 05/26/23 09/25/23 History potassium chloride 10 mEq 10 meq PO DAILY 05/26/23 09/25/23 History tablet,extended release (Klor-Con) sulfasalazine 500 mg 0.5 g PO DAILY 05/26/23 09/25/23 History tablet,delayed release Patient hx anesthesia problems: none Family hx anesthesia problems: none Results Review: All pre-operative results and documents have been reviewed as part of the pre-operative evaluation. [facility] Past Medical History Medical History Anxiety Asthma Cervical spine degeneration Depression Fatigue Fracture of proximal end of left humerus (~10/25/22) Hypertension IBS (irritable bowel syndrome) Neuropathy Painful orthopaedic hardware Rheumatoid arthritis Trochanteric bursitis, left hip Surgical History Surgical History History of back surgery (~2008) History of open reduction and internal fixation (ORIF) procedure (~11/22/22) Left Proximal Humerus Fx History of repair of right rotator cuff (~04/01/17) Hx of fusion of cervical spine Status post total knee replacement, right (~2012) Family History Family History Mother Hypertension Family history of Parkinson's disease Other Family history of gout Social History Social History Smoking packs per day: 1 Smoking cigarettes per day: 20.0 Years smoked: 10 Smoking pack-years: 10.00 Smoking status: Former smoker Tobacco t
[2023-09-25] VITALS (14 sets, daily range): BP systolic 140–155; BP diastolic 59–94; PULSE 72–91; RESP 14–18; TEMP 36.1–36.5; O2SAT 92–100
--- NOTE | ~2023-09-25 | XR_ITS ---
EXAMINATION: XR shoulder LT min 2V DATE: 09/25/2023 13:16 INDICATION: Reversal total left shoulder arthroplasty. Postop. TECHNIQUE: 2 views of left shoulder were obtained. COMPARISON: Left shoulder radiographs 04/07/2023 FINDINGS: There is a reverse cmih-pfg-qhqebt total shoulder arthroplasty in near-anatomic alignment. 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 No acute fracture. There are old heal ed left rib fractures. The acromioclavicular joint is normal. IMPRESSION: 1. Reverse dxrb-bez-tvskmw total left shoulder arthroplasty in near-anatomic alignment. Reviewed, dictated and finalized at location A. IMPRESSION: 1. Reverse wdki-fop-tjgwoa total left shoulder arthroplasty in near-anatomic al ignment.
[2023-09-25] MEDS: ACETAMINOPHEN 500 MG TABLET 1000 MG PO ×3 (09:18→21:00)
[2023-09-25] MEDS: LACTATED RINGERS 1,000 ML 30 ML IV CONT ×2 (09:20→13:04)
--- NOTE | 2023-09-25 10:08 | WPDANESPNB ---
Anes - Peripheral Nerve Block Date/Time: 09/25/23 10:08 I have discussed with the patient/family/POA the placement of a peripheral nerve block for post-operative pain management, including associated risks, benefits, complications, and side effects. Alternative methods of post-operative analgesia were detailed. Questions were solicited and answers provided to the satisfaction of the patient/family/POA. Time-Out: A pre-procedural Time-Out was completed immediately before starting the procedure and confirmed: Patient Identification, Site, Procedure, Patient Position and the Availability of Requisite Equipment. Clinical Indications: Acute post-operative pain management requested by the operative surgeon. Nerve Block Insertion Note Anes-nerve block: interscalene left Patient position: supine Skin prep: chlorhexidine Needle: 22 gauge, stimulating, insulated echogenic needle. Needle length: 50 mm Technique: ultrasound Injectate: bupivacaine 0.5% with epi 5 mcg/ml (20cc- no epi) Observations: tolerated well Complications: none Procedure start time:: 1027 Procedure end time:: 1031
[2023-09-25] MEDS: TRANEXAMIC ACID 1,000MG/ISO100 1,000 MG/100 ML BAG 200 MG IVPB (10:09)
--- NOTE | 2023-09-25 10:32 | WPDHPUPDATE1 ---
History and Physical Update Update Date/Time: 09/25/23 10:32 History and Physical has been reviewed, including an updated exam of the patient. There are NO changes in the patient's condition. Risks, benefits, and alternatives have been discussed and questions answered. Patient agrees to proceed with procedure.
[2023-09-25] MEDS: ceFAZolin 2 GM/D5W 50 ML 2 GM/50 ML BAG IVPB ×2 (10:46→18:31)
[2023-09-25] MEDS: SODIUM CHLORIDE 0.9% IV 37.7 ML, MORPHINE SULFATE INJ (*CRX) 2 MG, ROPivacaine HCL 1% 2... INFILTRATE (11:48)
[2023-09-25] MEDS: VANCOMYCIN HCL 1,000 MG VIAL 1000 MG TOPICAL (11:52)
[2023-09-25] MEDS: TRANEXAMIC ACID 1,000 MG/10 ML AMPUL 1000 MG IV PUSH (12:52)
--- NOTE | 2023-09-25 13:18 | SUR.OPER ---
left eye bruise and suture line intact and unchanged post removal of folded towel with tape on Irizarry headrest.
--- NOTE | 2023-09-25 13:30 | W.PM.PROC2 ---
Procedure Note - Detailed Date of Procedure 09/25/23 Pre-op Diagnosis 1. Left shoulder rotator cuff arthropathy 2. Rheumatoid arthritis 3. s/p left shoulder surgical neck fracture treated with IM nail. Post-op Diagnosis Same Procedure Performed 1. Reverse total shoulder arthroplasty, left 2. Removal of IM nail and locking screws. Surgeon Joel Womack MD [employer] Macrina Marroquin PA-C Anesthesia General and Regional (Interscalene block.) Findings Chronic massive rotator cuff tear. Limited remaining subscapularis inferiorly. Teres minor posteriorly. The intramedullary nail and screws were removed through the deltopectoral incision and the distal locking screw removed percutaneously. Bone quality was reasonable. Description of Procedure The patient was given an interscalene block in the preoperative area. Preoperative antibiotics were given. The patient was transferred to the operating room and a general anesthetic was administered. The beach chair position was used at 45 degrees. All bony prominences were padded. The head was carefully stabilized [facility] the [facility]. A sterile prep and drape was performed in the usual manner with ChloraPrep. A longitudinal incision was created at the anterior shoulder just lateral to the deltopectoral interval. Careful dissection was performed to expose the interval and protect the cephalic vein. The vein was retracted medially. A subscapularis tenotomy was performed of the remaining inferior tissue. Most of the tissue was chronic thickened bursa. The inferior capsule was released, exposing the humeral head. Osteophytes were removed. Care was taken to stay on bone to protect the axillary nerve. The end cap of the nail was removed. The proximal screws were removed as well as the distal locking screw through a stab incision with percutaneous dissection bluntly. The nail was removed without difficulty. The fracture site was very stable. The anatomic head cut was taken with the oscillating saw at approximately 25? retroversion. The cut protector was placed, and attention was turned to the glenoid. Retractors were placed. Releases were carried out for exposure. The subscapularis was mobilized, the inferior capsule and long head of triceps released, and the superior and middle glenohumeral ligaments released as well. Labral tissue was resected as needed. The sizing template was used to assess the baseplate position low on the glenoid. A guide pin was placed. Minimal reaming was used to accomplish a flat surface, at 10? inferior position. Approximately 80% of the surface. The boss was drilled, and the real component was impacted into position. Supplemental locking screws were placed centrally, superiorly, and inferiorly. The glenosphere was impacted into the taper. The proximal humerus was reamed for the inset component. The humeral components were trialed. The real humeral stem, tray, and insert were impacted into position. The shoulder was copiously irrigated periodically with pulsatile lavage. The shoulder was reduced and stability confirmed. 1 gram of Vancomycin powder was placed in the joint. The biceps tenodesis was incorporated with the pectoralis tendon repair. The deltopectoral space was reapproximated with number 1 Vicryl. The remaining tissue was closed with 0 Quill and 2-0 Quill running suture and steri-strips. A sterile silver occlusive dressing and shoulder immobilizer were placed. The patient was transferred to the recovery room. Physician assistant wrestling coach, Macrina Marroquin PA-C, required for surgery; including patient positioning, draping, tissue retraction, maintaining instrument position, wound closure, and dressing placement. Implants [place] perform long stem size 2+, reverse TSA size. +0 polyethylene insert. +3 mm baseplate. 36 mm glenosphere. Estimated Blood Loss 100 Drains No Pathology None sent Complications No immediate complications Condition Stable Disposition PACU [facility]
--- NOTE | 2023-09-25 14:45 | PC.NURSE ---
This patient, Ariella Mcbride, was admitted to [address] [place] [address] Room 325-01. Patient/family oriented to hospital policies and general routines including ID bracelet, bed and alarms, visiting hours, pain management, procedures, bathroom and other care routines, personal items, smoking policy, room service/diet, and visiting hours. Information on how to activate the Rapid Response Team has been discussed. Patient/Family are encouraged to report perceived risks to care and to ask questions if they do not understand what they are told or what they should do.
[2023-09-25] MEDS: SODIUM CHLORIDE 0.9% IV 1,000 ML 125 ML IV CONT (15:34)
[2023-09-25] MEDS: MELOXICAM 7.5 MG TABLET PO (17:02)
[2023-09-25] MEDS: HYDROXYCHLOROQUINE SULFATE 200 MG TABLET PO (17:02)
[2023-09-25] MEDS: ASPIRIN 81 MG ENTERIC TABLET PO (17:02)
[2023-09-25] MEDS: GABAPENTIN 300 MG CAPSULE 900 MG PO (17:03)
[2023-09-25] MEDS: traZODone HCL 50 MG TABLET PO (21:01)
[2023-09-25] MEDS: FAMOTIDINE 20 MG TABLET PO (21:01)
[2023-09-25] MEDS: ZOLPIDEM TARTRATE (*CRX) 5 MG TABLET 10 MG PO (21:41)
[2023-09-26] MEDS: ceFAZolin 2 GM/D5W 50 ML 2 GM/50 ML BAG IVPB ×2 (03:31→11:02)
[2023-09-26] MEDS: ACETAMINOPHEN 500 MG TABLET 1000 MG PO ×2 (03:32→09:32)
[2023-09-26 04:55] VITALS: BP 136/49; PULSE 85; RESP 16; TEMP 36.4; O2SAT 94
[2023-09-26] MEDS: oxyCODONE HCL (*CRX) 5 MG TAB IR PO (05:02)
[2023-09-26 07:22] VITALS: PULSE 86; RESP 18; O2SAT 96
[2023-09-26] MEDS: FLUTICASONE PROP 110 MCG INHALER 12 GM (*SP) 2 PUFF INHALATION (07:22)
[2023-09-26 07:30] LABS: Basophils Percent Auto 0.2 % (0.2-1.2); Eosinophils Absolute Auto 0.1 K/mm3 (0-0.3); Eosinophils Percent Auto 0.7 % (0-4.4); Hematocrit 32.9 % (37.0-47.0); Hemoglobin 10.3 g/dL (12.0-15.0); Immature Granulocyte Absolute 0.04 K/mm3 (0.00-0.031); Immature Granulocyte Percent A 0.4 % (0-0.5); Lymphocytes Absolute Auto 1.51 K/mm3 (0.9-3.2); Lymphocytes Percent Auto 15.6 % (18.3-44.2); Mean Corpuscular HGB Conc 31.3 g/dl (32-36); Mean Corpuscular Hemoglobin 37.1 pg (26-34); Mean Corpuscular Volume 118.3 fl (80-100); Mean Platelet Volume 9.6 fl (7.4-10.4); Monocytes Absolute Auto 1.1 K/mm3 (0.1-0.6); Monocytes Percent Auto 10.9 % (2.6-8.5); Neutrophils Percent Auto 72.2 % (45.5-73.1); Platelet Count Result 240 k/mm3 (150-375); Red Blood Count 2.78 M/mm3 (4.2-5.4); Red Cell Distribution Width 15.2 % (11.5-14.5); White Blood Count 9.7 K/mm3 (4.5-10.0)
[2023-09-26] MEDS: traMADol HCL (*CRX) 50 MG TABLET PO (07:35)
[2023-09-26 07:45] LABS: Anion Gap 5 mmol/L (4-12); Blood Urea Nitrogen 10 mg/dL (7-17); Calcium 8.4 mg/dL (8.4-10.2); Carbon Dioxide 25 mmol/L (22-30); Chloride 104 mmol/L (98-107); Estimated CRCL calculation 73 ml/min; Estimated Glomerular Filt Rate > 60; Glucose 146 mg/dL (65-110); Potassium 4.2 mmol/L (3.4-5.0); Sodium 134 mmol/L (137-145)
[2023-09-26 08:00] VITALS: BP 129/62; PULSE 85; RESP 18; TEMP 36.7; O2SAT 93
--- NOTE | 2023-09-26 08:10 | P.PNAN_ITS ---
Anes - Prog Note Post-Op Date/Time: 09/26/23 08:10 Cardiovascular status: normal Respiratory status: normal Airway patency: baseline Mental status: baseline Post-Op hydration status: normal Vital Signs: Last Vital Signs Temp 36.4 C L 09/26/23 04:55 Pulse 86 09/26/23 07:22 Resp 18 09/26/23 07:22 BP 136/49 L 09/26/23 04:55 Pulse Ox 96 09/26/23 07:22 O2 Del Method Room Air 09/26/23 07:22 O2 Flow Rate 2 09/25/23 14:30 Pain Score (VAS): 08/30 I/O: Intake & Output 09/25/23 09/26/23 09/26/23 23:59 07:59 15:59 Intake Total 290 Balance 290 Laboratory Tests 09/26/23 06:41 09/26/23 06:41 WBC Pending RBC Pending Hgb Pending Hct Pending MCV Pending MCH Pending MCHC Pending RDW Pending Plt Count Pending MPV Pending Immature Gran % (Auto) Pending Neut % (Auto) Pending Lymph % (Auto) Pending [place] % (Auto) Pending Eos % (Auto) Pending Baso % (Auto) Pending Lymph # (Auto) Pending [place] # (Auto) Pending Eos # (Auto) Pending Baso # (Auto) Pending Abs Immat Gran (auto) Pending Absolute Neuts (auto) Pending Absolute Nucleated RBC Pending Nucleated RBC % Pending Sodium 134 L Potassium 4.2 Chloride 104 Carbon Dioxide 25 Anion Gap 5 BUN 10 Creatinine 0.60 L Estim Creat Clear Calc 73 Estimated GFR > 60 Glucose 146 H Calcium 8.4 Post-procedural complaints: none Patient Feedback: Patient satisfied with anesthetic care.
[2023-09-26] MEDS: MORPHINE SULFATE (*CRX) 2 MG/ML INJ IV PUSH ×3 (08:30→13:44)
[2023-09-26] MEDS: oxyCODONE HCL (*CRX) 5 MG TAB IR 10 MG PO ×2 (09:29→13:13)
[2023-09-26] MEDS: ASPIRIN 81 MG ENTERIC TABLET PO (09:30)
[2023-09-26] MEDS: predniSONE 5 MG TABLET PO (09:30)
[2023-09-26 09:31] VITALS: PULSE 76
[2023-09-26] MEDS: FOLIC ACID 1 MG TABLET PO (09:31)
[2023-09-26] MEDS: FAMOTIDINE 20 MG TABLET PO (09:31)
[2023-09-26] MEDS: atenoloL 25 MG TABLET PO (09:31)
[2023-09-26] MEDS: GABAPENTIN 300 MG CAPSULE 900 MG PO (09:31)
[2023-09-26] MEDS: DULoxetine HCL 60 MG CAPSULE.DR PO (09:31)
[2023-09-26] MEDS: HYDROXYCHLOROQUINE SULFATE 200 MG TABLET PO (09:32)
[2023-09-26] MEDS: lisinopriL 5 MG TABLET PO (09:32)
[2023-09-26] MEDS: MELOXICAM 7.5 MG TABLET PO (09:32)
[2023-09-26] MEDS: POTASSIUM CHLORIDE 10 MEQ ER TABLET PO (09:32)
[2023-09-26 11:56] VITALS: BP 128/69; PULSE 76; RESP 16; TEMP 36.4; O2SAT 96
--- NOTE | 2023-09-26 16:21 | PM.DS ---
DS: Admitting Diagnosis Discharge Date 09/26/23 Admitting Diagnosis Left shoulder massive rotator cuff tear with rotator cuff arthropathy and rheumatoid arthritis, status post intramedullary nailing for proximal humerus fracture. DS: Discharge Diagnosis Discharge Diagnosis (1) Orthopedic aftercare for joint replacement: Code(s): Z47.1 - Aftercare following joint replacement surgery Status: Acute (2) Rotator cuff arthropathy of left shoulder: Code(s): M12.812 - Other specific arthropathies, not elsewhere classified, left shoulder Status: Acute (3) Status post reverse total arthroplasty of left shoulder: Code(s): Z96.612 - Presence of left artificial shoulder joint Status: Acute DS: Summary Hospital Course Reason for hospitalization: Total shoulder arthroplasty. Hospital Course: Tolerated surgery well. Progressed appropriately with therapy. Status at Discharge Functional status at discharge: independent ambulation Overall status at discharge: patient is progressing back to baseline Time Spent with Patient Time attestation: Total time spent providing and/or coordinating discharge services: Exam Const: General: no acute distress Resp: Effort & Inspection: normal respiratory effort Skin: Other: Wound healing well. Mepilex dressing intact. No hematoma or drainage. Sling applied appropriately. Deltoid muscle fires. Axillary nerve sensation intact. Good processing lead strength. No edema. radial pulse palpable. Neuro: Motor exam (neuro): 5/5 motor strength present throughout Sensory Exam: normal sensation Psych: Mental Status: mental status grossly normal Speech and movement: Normal speech and movement present DS: Data Data Completed and Pending Labs on day of discharge: Labs from last 24 hours 09/26/23 06:41 WBC 9.7 RBC 2.78 L Hgb 10.3 L Hct 32.9 L MCV 118.3 H MCH 37.1 H MCHC 31.3 L RDW 15.2 H Plt Count 240 MPV 9.6 Immature Gran % (Auto) 0.4 Neut % (Auto) 72.2 Lymph % (Auto) 15.6 L [place] % (Auto) 10.9 H Eos % (Auto) 0.7 Baso % (Auto) 0.2 Lymph # (Auto) 1.51 [place] # (Auto) 1.1 H Eos # (Auto) 0.1 Baso # (Auto) 0.0 Abs Immat Gran (auto) 0.04 H Absolute Neuts (auto) 7.0 H Absolute Nucleated RBC 0.000 Nucleated RBC % 0.0 Sodium 134 L Potassium 4.2 Chloride 104 Carbon Dioxide 25 Anion Gap 5 BUN 10 Creatinine 0.60 L Estim Creat Clear Calc 73 Estimated GFR > 60 Glucose 146 H Calcium 8.4 Discharge Plan Discharge Patient Disposition: Home, Self-Care Discharge Instructions: See green instruction sheets Stand Alone Forms: General Discharge Instructions Follow-up/Referrals: Macrina Marroquin PA [Physician Door Liner] - Discharge Medications: New meloxicam 15 mg tablet 15 mg PO DAILY Qty: 30 0RF Rx Instructions: Cut in half. Take 1/2 in morning and 1/2 at night. Take with food. Stop if stomach upset. prednisone 5 mg tablet 5 mg PO DAILY 21 Days Qty: 21 0RF oxycodone-acetaminophen 5-325 mg tablet 1 - 2 tablet PO Q4-6H MDD 6 PRN (Reason: pain) Qty: 30 0RF aspirin 81 mg tablet,delayed release (DR/EC) 81 mg PO BID 14 Days Qty: 28 0RF doxycycline hyclate 100 mg capsule 100 mg PO BID 21 Days Qty: 42 0RF Continued zolpidem 12.5 mg tablet,ext release multiphase 12.5 mg PO HS albuterol sulfate 90 mcg/actuation HFA aerosol inhaler 2 puff INHALATION QID MDD WHEEZING PRN (Reason: shortness of breath or wheezing) Qty: 8 0RF doxycycline monohydrate 100 mg capsule 100 mg PO BID Qty: 20 0RF lisinopril 5 mg tablet 5 mg PO DAILY duloxetine 60 mg capsule,delayed release(DR/EC) 60 mg PO DAILY sulfasalazine 500 mg tablet,delayed release (DR/EC) 0.5 g PO DAILY potassium chloride [Klor-Con 10] 10 mEq tablet extended release 10 meq PO DAILY All Day Allergy (cetirizine) 10 mg capsule 10 mg PO DAILY PRN (Reason: Congestion) loperamide [Imodiu
== END 2023-09-26 14:45 | disposition home or self-care (01) ==
LOC: ANHSURGERY 10:34 → ANH3MEDSUR 14:44
PROVIDERS: Physician Assistant Surgical; Visit Provider Orthopaedic Surgery
PROC: (CPT 23472; principal; 2023-09-25 10:30)
DX: M75.102 Unspecified rotator cuff tear or rupture of left shoulder, not specified as traumatic (principal); T84.84XA Pain due to internal orthopedic prosthetic devices, implants and grafts, initial encounter; Y83.8 Other surgical procedures as the cause of abnormal reaction of the patient, or of later complication, without mention of misadventure at the time of the procedure; M25.512 Pain in left shoulder; Z87.81 Personal history of (healed) traumatic fracture; M06.812 Other specified rheumatoid arthritis, left shoulder; G89.18 Other acute postprocedural pain; I10 Essential (primary) hypertension; F41.9 Anxiety disorder, unspecified; F32.A Depression, unspecified; G62.9 Polyneuropathy, unspecified; Z79.631 Long term (current) use of antimetabolite agent; Z79.51 Long term (current) use of inhaled steroids; Z87.891 Personal history of nicotine dependence
CPT/HCPCS: 20680; 23472; 64415; 36415; 73030; 80048; 85025; 94640; 97110; 97161; 97165; 97530; 97535; A4565; A9270; C1713; C1776; J0171; J0690; J1100; J1170; J1885; J2250; J2270; J2405; J2704; J2795; J3010; J3370; J7030; J7120; J7512